=== PATIENT | female | born 1960 | race Caucasian/White ===

== ENCOUNTER 2016-11-11 19:26 | Inpatient (IN) | payer BC ==
[~2016-11-11] VITALS: Ht 162.6 cm; Wt 81.1 kg
[~2016-11-11 19:26] MED LIST: ASPIRIN 81M81 MG/TA2 PO; BRILINTA90 MG PO; COLACE 100100 MG/CAP PO; COREG 3.123.125 MG/T PO; LASIX 20MG TABL20 MG PO; LIPITOR20 MG PO; NEXIUM 40MG40 MG PO; NITRO-DUR0.4 MG/PAT TD; THEO-DUR 2200 MG/TAB PO; XANAX 0.5MG0.5 MG PO
[2016-11-11 21:42] VITALS: BP 129/65; PULSE 61; TEMP 97.6
[2016-11-11] MEDS ORDERED: ALDACTONE50 MG PO (22:11)
[2016-11-11] MEDS ORDERED: EFFIENT10 MG PO (22:12)
[2016-11-11] MEDS ORDERED: NICODERM C14 MG/PATC TD (22:13)
[2016-11-12] VITALS (628 sets, daily range): BP systolic 79–127; BP diastolic 48–85; PULSE 49–98; TEMP 97.4–98.6; O2SAT 81–100
[2016-11-12 08:37] LABS: HEMATOCRIT 41.4 % (37.0-47.0); HEMOGLOBIN 13.7 g/dl (12.5-16.0); MEAN CELL VOLUME 92 fl (80.0-100.0); MEAN CORPUSCULAR HEMOGLOBIN 31 pg (27.0-31.0); MEAN CORPUSCULAR HGB CONC 33 g/dl (33.0-37.0); MEAN PLATELET VOLUME 9.5 fl (7.4-10.4); PLATELET COUNT 263 K/mm3 (130-400); RED BLOOD COUNT 4.48 M/mm3 (4.10-5.30); REDCELL DISTRIBUTION WIDTH-CV 12.8 % (11.5-14.5); WHITE BLOOD COUNT 6.6 K/mm3 (4.8-10.8)
[2016-11-12 08:55] LABS: CALCIUM 9.8 mg/dL (8.4-10.2); CREATININE, serum 0.82 mg/dL (0.52-1.25); POTASSIUM 4.1 mmol/L (3.4-5.0)
[2016-11-12 10:09] LABS: INR 1.1 (0.8-3.0); PROTHROMBIN TIME 12.5 SECONDS (9.7-12.8)
[2016-11-12 10:12] LABS: PARTIAL THROMBOPLASTIN TIME 41.3 SECONDS (26.0-37.0)
[2016-11-13] VITALS (569 sets, daily range): BP systolic 102–110; BP diastolic 56–67; PULSE 61–65; TEMP 97.8–98.2; O2SAT 35–100
[2016-11-13 05:51] LABS: BASO % 0.3 % (0.0-2.0); EOS # 0.2 (0.0-0.7); EOS % 3.4 % (0-4.0); GRAN # 4.2 (1.4-6.5); GRAN % 59.3 % (42.2-75.2); HEMATOCRIT 37.8 % (37.0-47.0); HEMOGLOBIN 12.4 g/dl (12.5-16.0); LYMPH # 2.1 (1.2-3.4); LYMPH % 30.2 % (20.0-51.0); MEAN CELL VOLUME 93 fl (80.0-100.0); MEAN CORPUSCULAR HEMOGLOBIN 31 pg (27.0-31.0); MEAN CORPUSCULAR HGB CONC 33 g/dl (33.0-37.0); MEAN PLATELET VOLUME 9.5 fl (7.4-10.4); MONO # 0.5 (0.1-0.6); MONO % 6.5 % (1.7-9.3); PLATELET COUNT 256 K/mm3 (130-400); RED BLOOD COUNT 4.05 M/mm3 (4.10-5.30); REDCELL DISTRIBUTION WIDTH-CV 12.8 % (11.5-14.5); WHITE BLOOD COUNT 7.1 K/mm3 (4.8-10.8)
[2016-11-13 05:52] LABS: CREATININE, serum 0.72 mg/dL (0.52-1.25); POTASSIUM 3.8 mmol/L (3.4-5.0)
== END 2016-11-13 11:50 | disposition home or self-care (01) | DRG 247 ==
LOC: MEDICAL 19:26 → ICU 21:40 → MEDICAL 21:40 → ICU 21:40 → MEDICAL 11-12 11:55 → ICU 11-13 11:50
PROVIDERS: Internal Medicine; Internal Medicine Interventional Cardiology
PROC: 027034Z Dilation of Coronary Artery, One Artery with Drug-eluting Intraluminal Device, Percutaneous Approach (ICD-10-PCS; principal; 2016-11-12)
PROC: B2111ZZ Fluoroscopy of Multiple Coronary Arteries using Low Osmolar Contrast (ICD-10-PCS; 2016-11-12)
PROC: B2151ZZ Fluoroscopy of Left Heart using Low Osmolar Contrast (ICD-10-PCS; 2016-11-12)
PROC: 4A023N7 Measurement of Cardiac Sampling and Pressure, Left Heart, Percutaneous Approach (ICD-10-PCS; 2016-11-12)
DX: I25.110 Atherosclerotic heart disease of native coronary artery with unstable angina pectoris (principal); I10 Essential (primary) hypertension; F17.210 Nicotine dependence, cigarettes, uncomplicated; Z95.5 Presence of coronary angioplasty implant and graft; I73.9 Peripheral vascular disease, unspecified
CPT/HCPCS: 99223-AI; 99232-AI; 99239; C1725; C1769; C1874; C1887; C1894; C9600; J0583; J1650; J2250; J3010; Q9967

== ENCOUNTER 2017-01-11 18:08 | Emergency (ER) | payer BC ==
[~2017-01-11] VITALS: Ht 162.6 cm; Wt 80.7 kg
[~2017-01-11 18:08] MED LIST changes: +ALDACTONE50 MG PO; +EFFIENT10 MG PO; +NICODERM C14 MG/PATC TD
[2017-01-11 18:14] VITALS: TEMP 98.1
[2017-01-11 18:49] LABS: BASO % 0.4 % (0.0-2.0); EOS # 0.2 (0.0-0.7); EOS % 3.5 % (0-4.0); GRAN # 3.8 (1.4-6.5); HEMATOCRIT 40.6 % (37.0-47.0); HEMOGLOBIN 13.5 g/dl (12.5-16.0); LYMPH # 2.2 (1.2-3.4); LYMPH % 32.3 % (20.0-51.0); MEAN CELL VOLUME 91 fl (80.0-100.0); MEAN CORPUSCULAR HEMOGLOBIN 30 pg (27.0-31.0); MEAN CORPUSCULAR HGB CONC 33 g/dl (33.0-37.0); MEAN PLATELET VOLUME 9.3 fl (7.4-10.4); MONO # 0.6 (0.1-0.6); MONO % 8.7 % (1.7-9.3); PLATELET COUNT 275 K/mm3 (130-400); RED BLOOD COUNT 4.47 M/mm3 (4.10-5.30); REDCELL DISTRIBUTION WIDTH-CV 12.8 % (11.5-14.5); WHITE BLOOD COUNT 6.9 K/mm3 (4.8-10.8)
[2017-01-11 18:58] LABS: PROTHROMBIN TIME 11.4 SECONDS (9.7-12.8)
[2017-01-11 19:23] LABS: ADJUSTED CALCIUM 9.3 mg/dL (8.4-10.2); ALANINE AMINOTRANSFERASE 36 U/L (9-52); ALBUMIN 4.4 gm/dL (3.5-5.0); ALKALINE PHOSPHATASE 68 U/L (50-136); ANION GAP 13 mmol/L (7-16); BILIRUBIN,TOTAL 0.5 mg/dL (0.0-1.0); BLOOD UREA NITROGEN 15 mg/dL (7-17); CALCIUM 9.6 mg/dL (8.4-10.2); CARBON DIOXIDE 26 mmol/L (22-30); CHLORIDE 106 mmol/L (98-107); GLUCOSE 100 mg/dL (74-106); LIPASE 57 U/L (23-300); POTASSIUM 3.8 mmol/L (3.4-5.0); SODIUM 145 mmol/L (137-145); TOTAL PROTEIN 7.9 gm/dL (6.4-8.2)
[2017-01-11 19:29] LABS: ACETAMINOPHEN < 10 ug/mL (10-30); SALICYLATE < 1.0 mg/dL
[2017-01-11 19:34] LABS: TROPONIN-I < 0.012 ng/mL (0.000-0.034)
[2017-01-11 20:57] LABS: AMPHETAMINE URINE NEGATIVE; BARBITURATES URINE NEGATIVE; BENZODIAZEPINES URINE POSITIVE; BUPRENORPHINE URINE NEGATIVE; METHADONE URINE NEGATIVE; OPIATES URINE POSITIVE; OXYCODONE URINE NEGATIVE; PHENCYCLIDINE URINE NEGATIVE; PROPOXYPHENE URINE NEGATIVE; THC CANNABINOIDS URINE NEGATIVE
[2017-01-11 20:59] LABS: ERYTHROCYTE SEDIMENTATION RATE 7 mm/hr (0-30)
[2017-01-11 21:06] LABS: C-REACTIVE PROTEIN < 0.5 mg/dL (0.0-0.9)
[2017-01-11 21:34] VITALS: BP 108/56; PULSE 70
[2017-01-11 21:38] LABS: B-TYPE NATRIURETIC PEPTIDE 558 pg/mL (0-125)
== END 2017-01-11 22:04 | disposition home or self-care (01) ==
LOC: COL.ER 18:08
PROVIDERS: Emergency Medicine
DX: R41.3 Other amnesia (principal); R51 Headache; R07.9 Chest pain, unspecified; I25.10 Atherosclerotic heart disease of native coronary artery without angina pectoris; I10 Essential (primary) hypertension; Z86.73 Personal history of transient ischemic attack (TIA), and cerebral infarction without residual deficits; Z95.5 Presence of coronary angioplasty implant and graft; F17.210 Nicotine dependence, cigarettes, uncomplicated
CPT/HCPCS: J1170; J1200; J2550; J7030

== ENCOUNTER 2017-02-27 14:45 | Inpatient (IN) | payer BC ==
[2017-02-27] VITALS (208 sets, daily range): BP systolic 129; BP diastolic 68; PULSE 62; TEMP 97.8; O2SAT 90–100
[~2017-02-27] VITALS: Ht 162.6 cm; Wt 85.8 kg
[2017-02-27] MEDS ORDERED: ASPIRIN E.C. 8181 MG PO (15:13)
[2017-02-27 15:18] LABS: BASO % 0.4 % (0.0-2.0); EOS # 0.3 (0.0-0.7); EOS % 4.2 % (0-4.0); GRAN % 57.7 % (42.2-75.2); HEMATOCRIT 41.1 % (37.0-47.0); HEMOGLOBIN 13.5 g/dl (12.5-16.0); LYMPH # 2.2 (1.2-3.4); LYMPH % 31.3 % (20.0-51.0); MEAN CELL VOLUME 91 fl (80.0-100.0); MEAN CORPUSCULAR HEMOGLOBIN 30 pg (27.0-31.0); MEAN CORPUSCULAR HGB CONC 33 g/dl (33.0-37.0); MEAN PLATELET VOLUME 9.2 fl (7.4-10.4); MONO # 0.4 (0.1-0.6); MONO % 6.3 % (1.7-9.3); PLATELET COUNT 274 K/mm3 (130-400); RED BLOOD COUNT 4.51 M/mm3 (4.10-5.30); REDCELL DISTRIBUTION WIDTH-CV 12.9 % (11.5-14.5)
[2017-02-27 15:19] LABS: PROTHROMBIN TIME 11.6 SECONDS (9.7-12.8)
[2017-02-27 15:21] LABS: ADJUSTED CALCIUM 9.6 mg/dL (8.4-10.2); ALANINE AMINOTRANSFERASE 30 U/L (9-52); ALBUMIN 4.4 gm/dL (3.5-5.0); ALKALINE PHOSPHATASE 64 U/L (50-136); ANION GAP 11 mmol/L (7-16); BILIRUBIN,TOTAL 0.5 mg/dL (0.0-1.0); BLOOD UREA NITROGEN 15 mg/dL (7-17); CALCIUM 9.9 mg/dL (8.4-10.2); CARBON DIOXIDE 28 mmol/L (22-30); CHLORIDE 107 mmol/L (98-107); CREATININE, serum 0.86 mg/dL (0.52-1.25); GLUCOSE 91 mg/dL (74-106); SODIUM 145 mmol/L (137-145); TOTAL PROTEIN 7.5 gm/dL (6.4-8.2)
[2017-02-27 15:22] LABS: PARTIAL THROMBOPLASTIN TIME 32.6 SECONDS (26.0-37.0)
[2017-02-27 15:33] LABS: TROPONIN-I < 0.012 ng/mL (0.000-0.034)
[2017-02-27 19:04] LABS: MAGNESIUM 2.1 mg/dL (1.6-2.3)
[2017-02-27 19:22] LABS: B-TYPE NATRIURETIC PEPTIDE 779 pg/mL (0-125)
[2017-02-27] MEDS ORDERED: SINGULAIR 110 MG/TAB PO (21:22)
[2017-02-28] VITALS (888 sets, daily range): BP systolic 94–160; BP diastolic 52–84; PULSE 60–91; TEMP 98–98.9; O2SAT 81–100
[2017-02-28 06:39] LABS: BASO % 0.4 % (0.0-2.0); EOS # 0.3 (0.0-0.7); EOS % 3.3 % (0-4.0); GRAN # 5.1 (1.4-6.5); GRAN % 63.6 % (42.2-75.2); HEMATOCRIT 37.1 % (37.0-47.0); HEMOGLOBIN 12.1 g/dl (12.5-16.0); LYMPH # 2.1 (1.2-3.4); LYMPH % 26.1 % (20.0-51.0); MEAN CELL VOLUME 92 fl (80.0-100.0); MEAN CORPUSCULAR HEMOGLOBIN 30 pg (27.0-31.0); MEAN CORPUSCULAR HGB CONC 33 g/dl (33.0-37.0); MEAN PLATELET VOLUME 9.5 fl (7.4-10.4); MONO # 0.5 (0.1-0.6); MONO % 6.3 % (1.7-9.3); PLATELET COUNT 242 K/mm3 (130-400); RED BLOOD COUNT 4.05 M/mm3 (4.10-5.30)
[2017-02-28 06:43] LABS: ANION GAP 12 mmol/L (7-16); BLOOD UREA NITROGEN 19 mg/dL (7-17); CALCIUM 9.1 mg/dL (8.4-10.2); CARBON DIOXIDE 24 mmol/L (22-30); CHLORIDE 107 mmol/L (98-107); CREATININE, serum 0.76 mg/dL (0.52-1.25); GLUCOSE 98 mg/dL (74-106); POTASSIUM 3.8 mmol/L (3.4-5.0); SODIUM 143 mmol/L (137-145)
[2017-02-28 06:59] LABS: TROPONIN-I < 0.012 ng/mL (0.000-0.034)
[2017-02-28] MEDS ORDERED: ZESTRIL 10MG10 MG PO (17:08)
== END 2017-02-28 18:03 | disposition home or self-care (01) | DRG 303 ==
LOC: COL.ER 14:45 → IMCU 17:36 → ICU 17:36 → IMCU 17:36
PROVIDERS: Emergency Medicine; Nurse Practitioner Family
DX: I25.110 Atherosclerotic heart disease of native coronary artery with unstable angina pectoris (principal); Z95.5 Presence of coronary angioplasty implant and graft; I10 Essential (primary) hypertension; Z87.891 Personal history of nicotine dependence; I73.9 Peripheral vascular disease, unspecified
CPT/HCPCS: OP; 99223-AI; A9502; J1644; J2785; J3010; J7030

== ENCOUNTER → 2017-06-06 | Outpatient (CLI) | payer BC ==
[~2017-06-06] MED LIST changes: +ASPIRIN E.C. 8181 MG PO; +SINGULAIR 110 MG/TAB PO; +ZESTRIL 10MG10 MG PO
== END ==
LOC: COL.PUL 11:00
DX: R06.02 Shortness of breath (principal); Z87.891 Personal history of nicotine dependence
CPT/HCPCS: J7674

== ENCOUNTER 2017-10-11 11:48 | Inpatient (IN) | payer BC ==
[~2017-10-11] VITALS: Ht 162.6 cm; Wt 86.1 kg
[2017-10-11] VITALS (166 sets, daily range): BP systolic 98–109; BP diastolic 53–61; PULSE 61–71; TEMP 98; O2SAT 93–100
[2017-10-11] MEDS ORDERED: PLAVIX 75MG TAB75 MG PO (12:05)
[2017-10-11] MEDS ORDERED: RT SPIRIVA18 MCG IH (12:07)
[2017-10-11] MEDS ORDERED: PAXIL 10MG10 MG PO (12:07)
[2017-10-11 12:33] LABS: PROTHROMBIN TIME 11.9 SECONDS (9.7-12.8)
[2017-10-11 12:35] LABS: BASO % 0.3 % (0.0-2.0); EOS # 0.3 (0.0-0.7); GRAN # 4.1 (1.4-6.5); GRAN % 58.5 % (42.2-75.2); HEMATOCRIT 40.4 % (37.0-47.0); HEMOGLOBIN 13.6 g/dl (12.5-16.0); LYMPH # 2.1 (1.2-3.4); LYMPH % 30.2 % (20.0-51.0); MEAN CELL VOLUME 91 fl (80.0-100.0); MEAN CORPUSCULAR HEMOGLOBIN 31 pg (27.0-31.0); MEAN CORPUSCULAR HGB CONC 34 g/dl (33.0-37.0); MEAN PLATELET VOLUME 9.1 fl (7.4-10.4); MONO # 0.5 (0.1-0.6); PARTIAL THROMBOPLASTIN TIME 31.4 SECONDS (26.0-37.0); PLATELET COUNT 255 K/mm3 (130-400); RED BLOOD COUNT 4.45 M/mm3 (4.10-5.30)
[2017-10-11 12:37] LABS: ADJUSTED CALCIUM 9.5 mg/dL (8.4-10.2); ALANINE AMINOTRANSFERASE 39 U/L (9-52); ALBUMIN 4.7 gm/dL (3.5-5.0); ALKALINE PHOSPHATASE 77 U/L (50-136); ANION GAP 9 mmol/L (7-16); BILIRUBIN,TOTAL 0.6 mg/dL (0.0-1.0); BLOOD UREA NITROGEN 14 mg/dL (7-17); CALCIUM 10.1 mg/dL (8.4-10.2); CARBON DIOXIDE 28 mmol/L (22-30); CHLORIDE 104 mmol/L (98-107); CREATININE, serum 0.87 mg/dL (0.52-1.25); GLUCOSE 91 mg/dL (74-106); POTASSIUM 4.6 mmol/L (3.4-5.0); SODIUM 142 mmol/L (137-145); TOTAL PROTEIN 7.9 gm/dL (6.4-8.2)
[2017-10-11 12:48] LABS: TROPONIN-I < 0.012 ng/mL (0.000-0.034)
[2017-10-11] MEDS ORDERED: ZESTRIL 10MG10 MG PO (17:11)
[2017-10-12] VITALS (603 sets, daily range): BP systolic 97–119; BP diastolic 53–72; PULSE 54–71; TEMP 97.3–98.6; O2SAT 76–100
[2017-10-12 05:39] LABS: BASO % 0.5 % (0.0-2.0); EOS # 0.3 (0.0-0.7); GRAN # 3.5 (1.4-6.5); GRAN % 56.4 % (42.2-75.2); HEMATOCRIT 37.4 % (37.0-47.0); HEMOGLOBIN 12.3 g/dl (12.5-16.0); LYMPH # 1.9 (1.2-3.4); LYMPH % 29.6 % (20.0-51.0); MEAN CELL VOLUME 92 fl (80.0-100.0); MEAN CORPUSCULAR HEMOGLOBIN 30 pg (27.0-31.0); MEAN CORPUSCULAR HGB CONC 33 g/dl (33.0-37.0); MEAN PLATELET VOLUME 9.3 fl (7.4-10.4); MONO # 0.5 (0.1-0.6); MONO % 8.3 % (1.7-9.3); PLATELET COUNT 236 K/mm3 (130-400); RED BLOOD COUNT 4.06 M/mm3 (4.10-5.30); WHITE BLOOD COUNT 6.2 K/mm3 (4.8-10.8)
[2017-10-12 06:03] LABS: CHOLESTEROL 118 mg/dL (120-200); CHOLESTEROL RISK RATIO 4.5; HDL CHOLESTEROL 26 mg/dL; LDL CHOLESTEROL 65 mg/dL; TRIGLYCERIDE 135 mg/dL
[2017-10-12 06:17] LABS: TROPONIN-I < 0.012 ng/mL (0.000-0.034)
[2017-10-12 06:27] LABS: CALCIUM 9.3 mg/dL (8.4-10.2); CREATININE, serum 0.83 mg/dL (0.52-1.25); POTASSIUM 4.3 mmol/L (3.4-5.0)
[2017-10-12] MEDS ORDERED: PROTONIX 40MG T40 MG PO (14:18)
[2017-10-12] MEDS ORDERED: COREG 6.256.25 MG/TA PO (14:22)
== END 2017-10-12 16:20 | disposition home or self-care (01) | DRG 251 ==
LOC: COL.ER 11:48 → ICU 14:27
PROVIDERS: Family Medicine
PROC: 027 Heart and Great Vessels, Dilation (ICD-10-PCS; principal; 2017-10-11)
PROC: 4A023N7 Measurement of Cardiac Sampling and Pressure, Left Heart, Percutaneous Approach (ICD-10-PCS; 2017-10-11)
DX: I25.119 Atherosclerotic heart disease of native coronary artery with unspecified angina pectoris (principal); I50.20 Unspecified systolic (congestive) heart failure; I11.0 Hypertensive heart disease with heart failure; J44.9 Chronic obstructive pulmonary disease, unspecified; G47.33 Obstructive sleep apnea (adult) (pediatric); E78.5 Hyperlipidemia, unspecified; K21.9 Gastro-esophageal reflux disease without esophagitis; F32.9 Major depressive disorder, single episode, unspecified; Z86.73 Personal history of transient ischemic attack (TIA), and cerebral infarction without residual deficits; Z95.5 Presence of coronary angioplasty implant and graft; Z87.891 Personal history of nicotine dependence
CPT/HCPCS: 99223-AI; 99239; C1760; C1894; J1650; J2250; J3010; J7030; Q9967

== ENCOUNTER 2017-11-20 21:22 | Observation (INO) | payer BC ==
[~2017-11-20] VITALS: Ht 162.6 cm; Wt 84.4 kg
[~2017-11-20 21:22] MED LIST changes: +COREG 6.256.25 MG/TA PO; +PAXIL 10MG10 MG PO; +PLAVIX 75MG TAB75 MG PO; +PROTONIX 40MG T40 MG PO; +RT SPIRIVA18 MCG IH
[2017-11-20] MEDS ORDERED: PAXIL 20MG20 MG PO (23:07)
[2017-11-20 23:11] VITALS: BP 112/58; PULSE 61; TEMP 98.4
[2017-11-21 03:23] LABS: BASO % 0.4 % (0.0-2.0); EOS # 0.2 (0.0-0.7); GRAN # 4.3 (1.4-6.5); GRAN % 59.2 % (42.2-75.2); HEMATOCRIT 37.7 % (37.0-47.0); HEMOGLOBIN 12.4 g/dl (12.5-16.0); LYMPH % 28.1 % (20.0-51.0); MEAN CELL VOLUME 91 fl (80.0-100.0); MEAN CORPUSCULAR HEMOGLOBIN 30 pg (27.0-31.0); MEAN CORPUSCULAR HGB CONC 33 g/dl (33.0-37.0); MEAN PLATELET VOLUME 9.4 fl (7.4-10.4); MONO # 0.7 (0.1-0.6); PLATELET COUNT 232 K/mm3 (130-400); RED BLOOD COUNT 4.15 M/mm3 (4.10-5.30); REDCELL DISTRIBUTION WIDTH-CV 13.3 % (11.5-14.5)
[2017-11-21 03:34] LABS: ANION GAP 8 mmol/L (7-16); BLOOD UREA NITROGEN 20 mg/dL (7-17); CALCIUM 9.2 mg/dL (8.4-10.2); CARBON DIOXIDE 25 mmol/L (22-30); CHLORIDE 110 mmol/L (98-107); CREATININE, serum 0.82 mg/dL (0.52-1.25); GLUCOSE 109 mg/dL (74-106); MAGNESIUM 2.1 mg/dL (1.6-2.3); PHOSPHOROUS 4.1 mg/dL (2.5-4.5); SODIUM 143 mmol/L (137-145)
[2017-11-21 03:58] LABS: TROPONIN-I 6 HR POST INITIAL < 0.012 ng/mL (0.000-0.034)
[2017-11-21 04:08] VITALS: BP 94/37; PULSE 67; TEMP 97.7
[2017-11-21 08:35] VITALS: BP 93/49; PULSE 61; TEMP 97.6
[2017-11-21 09:26] VITALS: BP 103/57
[2017-11-21] MEDS ORDERED: MIRALAX PA17 GM/Dose PO (10:26)
[2017-11-21] MEDS ORDERED: LIPITOR 80MG80 MG PO (10:29)
== END 2017-11-21 11:39 | disposition home or self-care (01) ==
LOC: MEDICAL 21:22
PROVIDERS: Internal Medicine
DX: R07.9 Chest pain, unspecified (principal); R73.9 Hyperglycemia, unspecified; I11.0 Hypertensive heart disease with heart failure; I50.33 Acute on chronic diastolic (congestive) heart failure; J44.9 Chronic obstructive pulmonary disease, unspecified; G47.33 Obstructive sleep apnea (adult) (pediatric); F32.9 Major depressive disorder, single episode, unspecified; F41.9 Anxiety disorder, unspecified; K21.9 Gastro-esophageal reflux disease without esophagitis; I25.10 Atherosclerotic heart disease of native coronary artery without angina pectoris; E78.2 Mixed hyperlipidemia; Z79.01 Long term (current) use of anticoagulants; Z90.710 Acquired absence of both cervix and uterus; Z90.49 Acquired absence of other specified parts of digestive tract; Z87.891 Personal history of nicotine dependence; Z86.73 Personal history of transient ischemic attack (TIA), and cerebral infarction without residual deficits; Z82.49 Family history of ischemic heart disease and other diseases of the circulatory system
CPT/HCPCS: 99222-AI; G0378

== ENCOUNTER 2018-04-06 09:12 | Day surgery (SDC) | payer BC ==
[2018-04-06] VITALS (10 sets, daily range): BP systolic 90–118; BP diastolic 47–65; PULSE 52–68; TEMP 97.8
[~2018-04-06] VITALS: Ht 162.7 cm; Wt 87.0 kg
[~2018-04-06 09:12] MED LIST changes: +LIPITOR 80MG80 MG PO; +MIRALAX PA17 GM/Dose PO; +PAXIL 20MG20 MG PO
[2018-04-06] MEDS ORDERED: LASIX 80MG TABL80 MG PO (09:31)
[2018-04-06] MEDS ORDERED: CLARITIN 1010 MG/TAB PO (09:31)
[2018-04-06] MEDS ORDERED: KLOR-CON SPRIN10 MEQ PO (09:32)
[2018-04-06] MEDS ORDERED: LIPITOR 80MG80 MG PO (09:32)
[2018-04-06] MEDS ORDERED: FOSAMAX 70MG TA70 MG PO (09:33)
[2018-04-06] MEDS ORDERED: COZAAR 25MG25 MG/TAB PO (09:33)
[2018-04-06 09:42] LABS: HEMATOCRIT 38.1 % (37.0-47.0); HEMOGLOBIN 12.6 g/dl (12.5-16.0); MEAN CELL VOLUME 90 fl (80.0-100.0); MEAN CORPUSCULAR HEMOGLOBIN 30 pg (27.0-31.0); MEAN CORPUSCULAR HGB CONC 33 g/dl (33.0-37.0); MEAN PLATELET VOLUME 8.9 fl (7.4-10.4); PLATELET COUNT 284 K/mm3 (130-400); RED BLOOD COUNT 4.25 M/mm3 (4.10-5.30); REDCELL DISTRIBUTION WIDTH-CV 13.5 % (11.5-14.5)
[2018-04-06 09:49] LABS: PROTHROMBIN TIME 11.2 SECONDS (9.7-12.8)
[2018-04-06 09:50] LABS: CALCIUM 9.3 mg/dL (8.4-10.2); CREATININE, serum 0.8 mg/dL (0.52-1.25); POTASSIUM 3.8 mmol/L (3.4-5.0)
[2018-04-06] MEDS ORDERED: NORVASC2.5 MG PO (12:33)
[2018-04-06] MEDS ORDERED: ZEBETA 5MG5 MG PO (12:34)
== END 2018-04-06 16:07 | disposition home or self-care (01) ==
LOC: COL.CAR 09:12
PROVIDERS: Internal Medicine Cardiovascular Disease
DX: I25.119 Atherosclerotic heart disease of native coronary artery with unspecified angina pectoris (principal); I42.0 Dilated cardiomyopathy; I49.3 Ventricular premature depolarization; I08.3 Combined rheumatic disorders of mitral, aortic and tricuspid valves; G47.33 Obstructive sleep apnea (adult) (pediatric); E78.5 Hyperlipidemia, unspecified; Z79.02 Long term (current) use of antithrombotics/antiplatelets; Z79.82 Long term (current) use of aspirin; Z79.899 Other long term (current) drug therapy; Z87.891 Personal history of nicotine dependence; Z95.5 Presence of coronary angioplasty implant and graft; Z86.73 Personal history of transient ischemic attack (TIA), and cerebral infarction without residual deficits
CPT/HCPCS: C1769; J1644; J2250; J3010; Q9967

== ENCOUNTER → 2018-05-04 | Outpatient (CLI) | payer BC ==
[~2018-05-04] MED LIST changes: +CLARITIN 1010 MG/TAB PO; +COZAAR 25MG25 MG/TAB PO; +FOSAMAX 70MG TA70 MG PO; +KLOR-CON SPRIN10 MEQ PO; +LASIX 80MG TABL80 MG PO; +NORVASC2.5 MG PO; +ZEBETA 5MG5 MG PO
== END ==
LOC: COL.CARD 10:27
DX: G47.10 Hypersomnia, unspecified (principal); R51 Headache; Z86.73 Personal history of transient ischemic attack (TIA), and cerebral infarction without residual deficits

== ENCOUNTER → 2018-05-11 | Outpatient (CLI) | payer BC | LOC: COL.RAD 12:18 | DX: G45.9 Transient cerebral ischemic attack, unspecified (principal); M48.02 Spinal stenosis, cervical region; M47.812 Spondylosis without myelopathy or radiculopathy, cervical region; G47.10 Hypersomnia, unspecified ==

== ENCOUNTER 2018-08-20 11:26 | Observation (INO) | payer BC ==
[2018-08-20] VITALS (33 sets, daily range): BP systolic 97–116; BP diastolic 53–63; PULSE 55–58; TEMP 97.6–98.6; O2SAT 92–100
[~2018-08-20] VITALS: Ht 162.6 cm; Wt 97.9 kg
[2018-08-20] MEDS ORDERED: CYMBALTA 20MG20 MG PO (11:42)
[2018-08-20] MEDS ORDERED: ASPIRIN 81M81 MG/TA2 PO ×2 (11:42→16:19)
[2018-08-20 12:19] LABS: BASO # 0.1 (0.0-0.2); BASO % 0.5 % (0.0-2.0); EOS # 0.2 (0.0-0.7); EOS % 2.5 % (0-4.0); GRAN # 5.6 (1.4-6.5); GRAN % 59.7 % (42.2-75.2); HEMATOCRIT 44.9 % (37.0-47.0); HEMOGLOBIN 14.9 g/dl (12.5-16.0); LYMPH # 2.8 (1.2-3.4); LYMPH % 29.4 % (20.0-51.0); MEAN CELL VOLUME 89 fl (80.0-100.0); MEAN CORPUSCULAR HEMOGLOBIN 30 pg (27.0-31.0); MEAN CORPUSCULAR HGB CONC 33 g/dl (33.0-37.0); MEAN PLATELET VOLUME 9.3 fl (7.4-10.4); MONO # 0.7 (0.1-0.6); MONO % 7.6 % (1.7-9.3); PLATELET COUNT 332 K/mm3 (130-400); RED BLOOD COUNT 5.04 M/mm3 (4.10-5.30); REDCELL DISTRIBUTION WIDTH-CV 13.3 % (11.5-14.5)
[2018-08-20 12:22] LABS: PROTHROMBIN TIME 11.4 SECONDS (9.7-12.8)
[2018-08-20 12:24] LABS: ALBUMIN 4.9 gm/dL (3.5-5.0); BILIRUBIN,TOTAL 0.7 mg/dL (0.0-1.0); CALCIUM 10.3 mg/dL (8.4-10.2); CREATININE, serum 0.99 mg/dL (0.52-1.25); POTASSIUM 4.5 mmol/L (3.4-5.0); TOTAL PROTEIN 8.9 gm/dL (6.4-8.2)
[2018-08-20 12:35] LABS: TROPONIN-I 0.017 ng/mL (0.000-0.034)
[2018-08-20] MEDS ORDERED: RANEXA 500MG T500 MG PO (13:29)
[2018-08-20] MEDS ORDERED: LIPITOR 40MG TA40 MG PO (16:18)
[2018-08-20] MEDS ORDERED: ALDACTONE 100M100 MG PO (16:18)
[2018-08-20 18:30] LABS: PARTIAL THROMBOPLASTIN TIME 165.3 SECONDS (26.0-37.0)
[2018-08-21] VITALS (12 sets, daily range): BP systolic 91–135; BP diastolic 48–69; PULSE 60–80; TEMP 97.5–98.6
[2018-08-21 04:38] LABS: BASO % 0.4 % (0.0-2.0); EOS # 0.2 (0.0-0.7); EOS % 3.2 % (0-4.0); GRAN # 4.2 (1.4-6.5); GRAN % 58.1 % (42.2-75.2); HEMATOCRIT 39.1 % (37.0-47.0); HEMOGLOBIN 13.2 g/dl (12.5-16.0); LYMPH # 2.3 (1.2-3.4); LYMPH % 31.4 % (20.0-51.0); MEAN CELL VOLUME 89 fl (80.0-100.0); MEAN CORPUSCULAR HEMOGLOBIN 30 pg (27.0-31.0); MEAN CORPUSCULAR HGB CONC 34 g/dl (33.0-37.0); MEAN PLATELET VOLUME 8.9 fl (7.4-10.4); MONO # 0.5 (0.1-0.6); MONO % 6.6 % (1.7-9.3); PLATELET COUNT 268 K/mm3 (130-400); RED BLOOD COUNT 4.39 M/mm3 (4.10-5.30); REDCELL DISTRIBUTION WIDTH-CV 13.3 % (11.5-14.5)
[2018-08-21 04:54] LABS: ALBUMIN 3.9 gm/dL (3.5-5.0); BILIRUBIN,TOTAL 0.5 mg/dL (0.0-1.0); CALCIUM 9.1 mg/dL (8.4-10.2); CREATININE, serum 0.89 mg/dL (0.52-1.25); POTASSIUM 3.9 mmol/L (3.4-5.0); TOTAL PROTEIN 7.1 gm/dL (6.4-8.2)
[2018-08-21 05:05] LABS: TROPONIN-I 0.018 ng/mL (0.000-0.034)
[2018-08-22 02:08] VITALS: BP 94/49; PULSE 69; TEMP 98.4
[2018-08-22 07:05] VITALS: BP 106/53; PULSE 63; TEMP 98.3
[2018-08-22 07:29] LABS: HEMOGLOBIN 12.9 g/dl (12.5-16.0); MEAN CELL VOLUME 90 fl (80.0-100.0); MEAN CORPUSCULAR HEMOGLOBIN 30 pg (27.0-31.0); MEAN CORPUSCULAR HGB CONC 33 g/dl (33.0-37.0); MEAN PLATELET VOLUME 9.2 fl (7.4-10.4); PLATELET COUNT 268 K/mm3 (130-400); RED BLOOD COUNT 4.34 M/mm3 (4.10-5.30); REDCELL DISTRIBUTION WIDTH-CV 13.5 % (11.5-14.5)
[2018-08-22 11:25] VITALS: BP 112/66; PULSE 66; TEMP 98.5
[2018-08-22] MEDS ORDERED: FLOVENT 110MCG7.9 GM IH (13:00)
== END 2018-08-22 14:47 | disposition home or self-care (01) ==
LOC: COL.ER 11:26 → ICU 16:28 → MEDICAL 17:30
PROVIDERS: Emergency Medicine; Physician Assistant
DX: R07.89 Other chest pain (principal); E78.5 Hyperlipidemia, unspecified; G47.33 Obstructive sleep apnea (adult) (pediatric); K21.9 Gastro-esophageal reflux disease without esophagitis; I11.0 Hypertensive heart disease with heart failure; I50.9 Heart failure, unspecified; F41.9 Anxiety disorder, unspecified; F32.9 Major depressive disorder, single episode, unspecified; R94.5 Abnormal results of liver function studies; I35.1 Nonrheumatic aortic (valve) insufficiency; Z79.02 Long term (current) use of antithrombotics/antiplatelets; Z79.82 Long term (current) use of aspirin; Z90.49 Acquired absence of other specified parts of digestive tract; Z90.710 Acquired absence of both cervix and uterus; Z88.5 Allergy status to narcotic agent; Z88.6 Allergy status to analgesic agent; Z88.8 Allergy status to other drugs, medicaments and biological substances; Z91.040 Latex allergy status; Z86.73 Personal history of transient ischemic attack (TIA), and cerebral infarction without residual deficits; Z87.891 Personal history of nicotine dependence; Z82.49 Family history of ischemic heart disease and other diseases of the circulatory system
CPT/HCPCS: A9502; G0378; J1170; J1644; J2785; J3010; J7030

== ENCOUNTER 2018-12-26 11:00 | Inpatient (IN) | payer BC | END 2018-12-27 12:37 | disposition home or self-care (01) | DRG 313 | LOC: COL.ER 11:00 → ICU 13:23 | PROVIDERS: ADMIT Internal Medicine | DX: R07.89 Other chest pain (principal); I42.2 Other hypertrophic cardiomyopathy; I25.10 Atherosclerotic heart disease of native coronary artery without angina pectoris; I10 Essential (primary) hypertension; E78.5 Hyperlipidemia, unspecified; Z95.5 Presence of coronary angioplasty implant and graft; Z87.891 Personal history of nicotine dependence; E83.52 Hypercalcemia; G47.33 Obstructive sleep apnea (adult) (pediatric); F41.8 Other specified anxiety disorders ==

== ENCOUNTER 2019-05-28 15:00 | Observation (INO) | payer BC ==
[~2019-05-28] VITALS: Ht 162.6 cm; Wt 87.5 kg
[2019-05-28] VITALS (275 sets, daily range): BP systolic 108–135; BP diastolic 65–77; PULSE 73–88; TEMP 98.3; O2SAT 92–100
[~2019-05-28 15:00] MED LIST changes: +ALDACTONE 100M100 MG PO; +CARDIZEM CD 12120 MG PO; +CYMBALTA 20MG20 MG PO; +FLOVENT 110MCG7.9 GM IH; +LIORESAL 1010 MG/TAB PO; +LIPITOR 40MG TA40 MG PO; +RANEXA 500MG T500 MG PO; +VITAMIN B COMPL1 SGL PO; +VITAMINE200 PO
--- NOTE | 2019-05-28 16:05 | NUR ---
Patient arrives to ICU 5 via stretcher with EMS from [facility], direct admit to hospitalist services with dx chest pain. Transferred into bed and monitors applied. Continues to complain of chest pain, 4-03/15. Denies radiation, nausea, "just some pressure right in my heart." Call light in reach, will let Divina Rodriguez APRN know patient here.
[2019-05-28] MEDS ORDERED: PROTONIX 40MG T40 MG PO (16:54)
[2019-05-28 18:06] LABS: PROTHROMBIN TIME 12.2 SECONDS (9.7-12.8)
[2019-05-28 18:09] LABS: MAGNESIUM 2.1 mg/dL (1.6-2.3)
[2019-05-28 18:16] LABS: PARTIAL THROMBOPLASTIN TIME 32.1 SECONDS (26.0-37.0)
[2019-05-28 18:22] LABS: TROPONIN-I 0.028 ng/mL (0.000-0.035)
--- NOTE | 2019-05-28 19:05 | NUR ---
Report received from Oralia Muller RN. Pt resting in bed with eye glasses in place and a ring on the right hand.
--- NOTE | 2019-05-28 19:21 | NUR ---
Bedside report given to Karie SCHULZ.
[2019-05-29] VITALS (521 sets, daily range): BP systolic 95–133; BP diastolic 53–78; PULSE 74–90; TEMP 98.4–98.5; O2SAT 89–99
--- NOTE | 2019-05-29 | NUR ---
Pt demonstrated proper use of the call light with requests to use the restroom. Standby assist provided following organization of monitor cords. Pt also requested at this time placement of CPAP mask set up by RT.
[2019-05-29 05:18] LABS: BASO % 0.3 % (0.0-2.0); EOS # 0.3 (0.0-0.7); EOS % 4.8 % (0-4.0); GRAN # 3.8 (1.4-6.5); GRAN % 57.3 % (42.2-75.2); HEMOGLOBIN 11.8 g/dl (12.5-16.0); LYMPH # 1.8 (1.2-3.4); LYMPH % 27.8 % (20.0-51.0); MEAN CELL VOLUME 89 fl (80.0-100.0); MEAN CORPUSCULAR HEMOGLOBIN 27 pg (27.0-31.0); MEAN CORPUSCULAR HGB CONC 30 g/dl (33.0-37.0); MEAN PLATELET VOLUME 8.8 fl (7.4-10.4); MONO # 0.6 (0.1-0.6); MONO % 9.5 % (1.7-9.3); PLATELET COUNT 275 K/mm3 (130-400); RED BLOOD COUNT 4.38 M/mm3 (4.10-5.30); REDCELL DISTRIBUTION WIDTH-CV 14.6 % (11.5-14.5)
[2019-05-29 05:34] LABS: CALCIUM 9.3 mg/dL (8.4-10.2); CHOLESTEROL RISK RATIO 3.5; CREATININE, serum 0.73 (0.52-1.25); POTASSIUM 4.4 mmol/L (3.4-5.0)
[2019-05-29 05:43] LABS: TROPONIN-I 0.017 ng/mL (0.000-0.035)
--- NOTE | 2019-05-29 07:20 | NUR ---
Bedside report provided to Lorena SCHULZ. Pt resting in bed at this time.
--- NOTE | 2019-05-29 07:42 | NUR ---
Report received from Karie SCHULZ and care resumed.
--- NOTE | 2019-05-29 10:00 | NUR ---
Dr Ricci in to see pt. Will wait on echo to be done for updated plan of care.
--- NOTE | 2019-05-29 10:02 | NUR ---
Initial visit; Patient thanked [employer] for looking in on her and offering God's blessings.
--- NOTE | 2019-05-29 13:37 | NUR ---
Pt remains resting at this time. Denies any pain or concerns. Would like to go home. Stated we are currently waiting on echo results for updated plan of care. Will continue to follow.
--- NOTE | 2019-05-29 14:26 | NUR ---
SW attended clinical rounding and met with patient to discuss discharge plan. Patient lives in [place] with her significant other Tin Campos (DPOA). Patients PCP is Carolina Lindsey APRN at the [facility] in where she also obtains her medications. Patient does have a DPOA-HC in EMR. There are no anticipated dc needs however sw will continue to follow.
--- NOTE | 2019-05-29 15:27 | NUR ---
Pt given discharge instructions and showed out to entrance per request of walking at 1520.
== END 2019-05-29 15:20 | disposition home or self-care (01) ==
LOC: IMCU 15:00 → ICU 16:05
PROVIDERS: Nurse Practitioner Family; ADMIT Hospitalist
DX: R07.89 Other chest pain (principal); R00.2 Palpitations; I10 Essential (primary) hypertension; G45.9 Transient cerebral ischemic attack, unspecified; E78.5 Hyperlipidemia, unspecified; G47.33 Obstructive sleep apnea (adult) (pediatric); K21.9 Gastro-esophageal reflux disease without esophagitis; F41.9 Anxiety disorder, unspecified; F32.9 Major depressive disorder, single episode, unspecified; I42.2 Other hypertrophic cardiomyopathy; K59.09 Other constipation
CPT/HCPCS: G0378; G0379; J1170; J1650; J7030

== ENCOUNTER 2020-07-01 12:36 | Observation (INO) | payer OTHER ==
[~2020-07-01] VITALS: Ht 162.6 cm; Wt 88.6 kg
[~2020-07-01 12:36] MED LIST changes: +00186-0370-20 IH; +LOPRESSOR 225 MG/TAB; +MELATIN 3 MG-11 TAB PO; +NATURAL E400 IU PO; +SPIRIVA RE2.5 MCG/Ac IH
[2020-07-01 13:12] LABS: BASO % 0.3 % (0.0-2.0); EOS # 0.1 (0.0-0.7); GRAN # 4.4 (1.4-6.5); GRAN % 62.1 % (42.2-75.2); HEMATOCRIT 43.7 % (37.0-47.0); HEMOGLOBIN 14.3 g/dl (12.5-16.0); LYMPH # 1.9 (1.2-3.4); LYMPH % 27.1 % (20.0-51.0); MEAN CELL VOLUME 91 fl (80.0-100.0); MEAN CORPUSCULAR HEMOGLOBIN 30 pg (27.0-31.0); MEAN CORPUSCULAR HGB CONC 33 g/dl (33.0-37.0); MEAN PLATELET VOLUME 9.5 fl (7.4-10.4); MONO # 0.6 (0.1-0.6); MONO % 8.4 % (1.7-9.3); PLATELET COUNT 239 K/mm3 (130-400); RED BLOOD COUNT 4.78 M/mm3 (4.10-5.30); REDCELL DISTRIBUTION WIDTH-CV 12.7 % (11.5-14.5)
[2020-07-01 13:16] LABS: PROTHROMBIN TIME 11.7 SECONDS (9.7-12.8)
[2020-07-01 13:24] LABS: ALBUMIN 4.4 gm/dL (3.5-5.0); BILIRUBIN,TOTAL 0.5 mg/dL (0.0-1.0); CALCIUM 9.9 mg/dL (8.4-10.2); CREATININE, serum 0.81 (0.52-1.25); POTASSIUM 4.3 mmol/L (3.4-5.0); TOTAL PROTEIN 7.9 gm/dL (6.4-8.2)
[2020-07-01 13:33] LABS: TROPONIN-I 0.014 ng/mL (0.000-0.035)
[2020-07-01] MEDS ORDERED: TOPROL XL 25MG25 MG PO (13:50)
--- NOTE | 2020-07-01 18:10 | NUR ---
Patient to floor via stretcher from ER. Transfers to bed with minimal assist. Patient denies any chest pain, having a small headache. Heparin infusing in IV to right FA at 10mL/hr. Patient oriented to room. Denies needs or concerns at this time.
[2020-07-01 18:24] VITALS: BP 94/51; PULSE 60; TEMP 98.1
[2020-07-01 18:41] VITALS: BP 94/51; PULSE 60; TEMP 98.1
[2020-07-01 19:06] VITALS: BP 101/44; PULSE 60; TEMP 99.4
--- NOTE | 2020-07-01 21:52 | NUR ---
Pt Hep Xa results were 1.0, stopped heparin infusion per protocol orders. will restart at 7.5 ml/hr in 1 hour.
[2020-07-01 22:26] VITALS: BP 99/46; PULSE 61; TEMP 98.8
--- NOTE | 2020-07-01 22:55 | NUR ---
Pt resting in bed, reports a headache. gave tylenol 650 mg prn per providers orders. denies pain anywhere else. alert and oriented. no other needs at this time, will continue to monitor.
[2020-07-01 23:50] VITALS: BP 101/39; PULSE 60; TEMP 98.1
[2020-07-02] VITALS (7 sets, daily range): BP systolic 90–109; BP diastolic 33–51; PULSE 53–60; TEMP 97.5–98.4
--- NOTE | 2020-07-02 05:04 | NUR ---
Pt blood pressure was 93/35, pt denied any dizziness. performed orthostatic blood pressures, blood pressure was 95/47 when standing. pt denied any dizziness. will continue to monitor.
--- NOTE | 2020-07-02 05:22 | NUR ---
Pt sleeping in bed most of the night. states that the tylenol helped relieve the headache. checked on throughout the shift, no further needs at this time.
--- NOTE | 2020-07-02 06:32 | NUR ---
HepXa was 0.61, decreased rate by 1 mL to 6.5 mLs per hour per protocol. next lab to be taken in 6 hours.
--- NOTE | 2020-07-02 09:08 | NUR ---
Initial visit; Patient thanked [employer] for looking in on her though declined spiritual care.
--- NOTE | 2020-07-02 09:18 | NUR ---
Pt assessment complete. Pt is laying in bed upon entry, she is A/O x4. Her breathing is even and unlabored on RA. Pt denies SOB. Reports chest "squeezing earlier" but has since resolved. Denies any pain at this time. Reports a "soreness" to shins, SCD's applied, no redness or warmth to either calf. Heparin infusing per protocol. No needs at this time. Call light within reach.
--- NOTE | 2020-07-02 10:04 | NUR ---
LLUVIA met with the patient and her life partner, Tin Campos (ph#[phone]), to discuss discharge plan. The patient lives at [facility] in [place] with Tin. She reports independence with ADLs and does not have any DME. The patient's primary care provider is Marilin Daniels APRN at [facility] in [place] and she also receives her medications there. 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 The patient's DPOA-HC is in EMR. Her DPOA-HC is Tin. The patient plans to return home with her life partner upon discharge. No additional needs at this time.
[2020-07-02] MEDS ORDERED: TOPROL XL 25MG25 MG PO (12:17)
--- NOTE | 2020-07-02 17:03 | NUR ---
Discharge paperwork and instructions reviewed with patient. All questions answered at this time. IV to RFA dc'd catheter tip intact.
--- NOTE | 2020-07-02 17:10 | NUR ---
Pt wheeled out of facility by staff at this time.
== END 2020-07-02 17:15 | disposition home or self-care (01) ==
LOC: COL.ER 12:36 → MEDICAL 14:36 → COL.ER 14:36 → SURG 14:36 → MEDICAL 14:36 → EDBEDREQ 15:38 → MEDICAL 07-02 17:15
PROVIDERS: Emergency Medicine; ADMIT Student in an Organized Health Care Education/Training Program
DX: R07.9 Chest pain, unspecified (principal); I25.10 Atherosclerotic heart disease of native coronary artery without angina pectoris; I10 Essential (primary) hypertension; E78.5 Hyperlipidemia, unspecified; I42.2 Other hypertrophic cardiomyopathy; J45.909 Unspecified asthma, uncomplicated; G47.33 Obstructive sleep apnea (adult) (pediatric); F41.9 Anxiety disorder, unspecified; F32.9 Major depressive disorder, single episode, unspecified; K59.09 Other constipation; K21.9 Gastro-esophageal reflux disease without esophagitis; I34.1 Nonrheumatic mitral (valve) prolapse; Z95.1 Presence of aortocoronary bypass graft; Z86.73 Personal history of transient ischemic attack (TIA), and cerebral infarction without residual deficits; Z91.040 Latex allergy status; Z91.048 Other nonmedicinal substance allergy status; Z88.5 Allergy status to narcotic agent; Z88.8 Allergy status to other drugs, medicaments and biological substances; Z90.49 Acquired absence of other specified parts of digestive tract; Z95.5 Presence of coronary angioplasty implant and graft; Z90.710 Acquired absence of both cervix and uterus; Z87.891 Personal history of nicotine dependence
CPT/HCPCS: 99239; G0378; J1644; J2405; J3010; J7030

== ENCOUNTER → 2022-01-27 | Outpatient (CLI) | payer OTHER ==
[~2022-01-27] MED LIST changes: +TOPROL XL 25MG25 MG PO
== END ==
LOC: COL.RAD 12:34
DX: K43.9 Ventral hernia without obstruction or gangrene (principal); N28.89 Other specified disorders of kidney and ureter; Z90.49 Acquired absence of other specified parts of digestive tract